=== PATIENT | female | born 1940 | race Caucasian/White ===

== ENCOUNTER 2024-06-01 03:30 | Emergency (ER) | payer OTHER, SELFPAY ==
[2024-06-01] MEDS ORDERED: ONDANSETRON 4 MG/2 ML VIAL ONE ×2 (03:51→08:43)
[2024-06-01] MEDS ORDERED: NA CHLORIDE 0.9% 1,000 ML ONE (03:52)
[2024-06-01] MEDS ORDERED: MORPHINE 4 MG/ML SYR ONE ×2 (03:52→08:43)
[2024-06-01 05:03] LABS: Absolute Eosinophils 0.1 K/uL (0-0.5); Absolute Lymphocytes (CBC) 1.2 K/uL (0.7-4.9); Absolute Monocytes 0.6 K/uL (0.1-1.3); Absolute Neutrophil 8.4 K/uL (1.8-8.0); Basophils % 0.4 % (0-1.3); Eosinophils % 0.6 % (0-4.4); Hematocrit 34.9 % (36.0-45.0); Hemoglobin 11.7 g/dL (12.0-15.0); MCH 27.8 pg (27.0-35.0); MCHC 33.6 g/dL (32.0-36.0); MCV 82.9 fL (80-100); MPV 10.1 fL (7.6-11.3); Monocytes % 5.4 % (3.3-12.3); Neutrophils % 81.6 % (41.7-73.7); Platelets 226 thou/uL (152-406); RBC Red Blood Cell Count 4.21 M/uL (3.86-4.86); Red Cell Distribution Width 15.4 % (12.1-15.2)
[2024-06-01 05:28] LABS: AST/SGOT 11 U/L (15-37); Albumin 3.3 g/dL (3.4-5.0); Albumin/Globulin Ratio 0.9 (1.1-1.8); Alkaline Phosphatase 64 U/L (45-117); Anion Gap 10.6 mEq/L (5.0-15.0); BUN Blood Urea Nitrogen 19 mg/dL (7-18); Bicarbonate 25 mEq/L (21-32); Bilirubin Total 1.3 mg/dL (0.2-1.0); Globulin 3.7 g/dL (2.3-3.5); Glomerular Filtration Rate 59 ml/min (=/>90); Glucose Level 142 mg/dL (74-106); Lipase 34 U/L (13-75); Potassium 3.6 mEq/L (3.5-5.1); Sodium Level 136 mEq/L (136-145); Troponin High Sensitivity 43.6 pg/mL (<58.9)
[2024-06-01 05:30] LABS: ALT/SGPT < 14 U/L (13-56)
[2024-06-01 06:15] LABS: Renal Epithelial <5 /HPF (None Seen); Specific Gravity 1.022 (1.005-1.030); Sqamous Epithelial <5 /HPF (None Seen); Urine Bacteria None Seen /HPF (<20); Urine Bilirubin NEGATIVE (Negative); Urine Blood Negative (Negative); Urine Clarity Clear (Clear); Urine Color Yellow (Yellow); Urine Culture Reflex Order NOT NEEDED; Urine Glucose NEGATIVE (Negative); Urine Ketones TRACE (Negative); Urine Microscopic Reflex YN ORDER UMIC; Urine Mucus Slight /HPF (None Seen); Urine Nitrite NEGATIVE (Negative); Urine Protein TRACE (Negative); Urine RBC <5 /HPF (None Seen); Urine Urobilinogen Normal (Normal); Urine WBC <5 /HPF (<5)
--- NOTE | 2024-06-01 08:02 | RAD REPORT ---
EXAM DESCRIPTION: CT - Abdomen Pelvis W Contrast - 06/01/2024 6:16 am CLINICAL HISTORY: Abdominal pain COMPARISON: none. TECHNIQUE: Computed axial tomography of the abdomen pelvis was obtained. 100 cc Isovue-300 was admin istered intravenously. Oral contrast was not requested which limits evaluation of bowel and appendix All CT scans are performed using dose optimization technique as appropriate and may include automated exposure control or mA/KV adjustment according to patient size. FINDINGS: Small left pleural effusion Cholecystectomy. Prominence of the biliary tree. The spleen, pancreas, adrenals and kidneys unremarkable Hysterectomy. No adnexal mass. Diverticula stem from the colon without evidence of diverticulitis. Postsurgical changes involve the stomach. Moderate dilatation of jejunum. This extends to a ventral hernia to the left of midline at the level of the iliac crest. Neck measures 6 millimeters. Ileum decompressed. No free air. No abscess Due to technical reasons the exam could not be read until now IMPRESSION: Small bowel obstruction secondary to a ventral hernia Prominence of the biliary tree can be a normal finding in this elderly patient status post cholecyste ctomy. However, this should be correlated clinically with appropriate lab values
--- NOTE | 2024-06-01 08:23 | EDPHYS ---
Physician Documentation [facility] Name: Rachel Sanders Age: 83 yrs Sex: Female : 1940 Arrival Date: 06/01/2024 Time: 03:30 Bed 7 Private MD: ED Physician Servando Pollock HPI: 06/01 04:04 This 83 yrs old Female presents to ER via Wheelchair with complaints of Abdominal Pain, sp3 Nausea/Vomiting. 04:04 83-year-old female history of diabetes, coronary artery disease status post CABG 3 sp3 months ago presents with left lower quadrant abdominal pain for the last 12 hours coupled with vomiting. She denies any diarrhea, blood or mucus in her emesis, back pain, right-sided pain, epigastric pain, chest pain, left arm pain, jaw pain, or any other anginal equivalents, or any other signs or symptoms on ROS at this time. Pain is described as sharp in nature. Historical: - Allergies: 03:45 Aspirin; hb - PMHx: 03:51 DM2; hb - PSHx: 03:51 CABG; Appendectomy; Hypertension; Cholecystectomy; hb - Immunization history:: Adult Immunizations up to date. - Infectious Disease History:: Denies. - Social history:: Smoking status: Patient denies any tobacco usage or history of. ROS: 04:06 Constitutional: Negative for fever, chills, and weight loss, Eyes: Negative for injury, sp3 pain, redness, and discharge, ENT: Negative for injury, pain, and discharge, Neck: Negative for injury, pain, and swelling, Cardiovascular: Negative for chest pain, palpitations, and edema, Respiratory: Negative for shortness of breath, cough, wheezing, and pleuritic chest pain, Back: Negative for injury and pain, MS/Extremity: Negative for injury and deformity, Skin: Negative for injury, rash, and discoloration, Neuro: Negative for headache, weakness, numbness, tingling, and seizure, Psych: Negative for depression, anxiety, suicide ideation, homicidal ideation, and hallucinations, Allergy/Immunology: Negative for hives, rash, and allergies, Endocrine: Negative for neck swelling, polydipsia, polyuria, polyphagia, and marked weight changes, Hematologic/Lymphatic: Negative for swollen nodes, abnormal bleeding, and unusual bruising, 04:06 All other systems are negative, Exam: 04:06 Constitutional: This is a well developed, well nourished patient who is awake, alert, sp3 and in no acute distress. Head/Face: Normocephalic, atraumatic. Eyes: Pupils equal round and reactive to light, extra-ocular motions intact. Lids and lashes normal. Conjunctiva and sclera are non-icteric and not injected. Cornea within normal limits. Periorbital areas with no swelling, redness, or edema. ENT: Nares patent. No nasal discharge, no septal abnormalities noted. External auditory canals are clear. Oropharynx with no redness, swelling, or masses, exudates, or evidence of obstruction, uvula midline. Mucous membranes moist. Neck: Trachea midline, no thyromegaly or masses palpated, and no cervical lymphadenopathy. Supple, full range of motion without nuchal rigidity, or vertebral point tenderness. No Meningismus. Chest/axilla: Normal chest wall appearance and motion. Nontender with no deformity. No lesions are appreciated. Cardiovascular: Regular rate and rhythm with a normal S1 and S2. No gallops, murmurs, or rubs. Normal PMI, no JVD. No pulse deficits. Respiratory: Lungs have equal breath sounds bilaterally, clear to auscultation and percussion. No rales, rhonchi or wheezes noted. No increased work of breathing, no retractions or nasal flaring. Back: No spinal tenderness. No costovertebral tenderness. Full range of motion. Skin: Warm, dry with normal turgor. Normal color with no rashes, no lesions, and no evidence of cellulitis. MS/ Extremity: Pulses equal, no cyanosis. Neurovascular intact. Full, normal range of motion. Neuro: Awake and alert, GCS 15, oriented to person, place, time, and situation. Cranial nerves II-XII grossly intact. Motor strength 5/5 in all extremities. Sensory grossly intact. Cerebellar exam normal. Normal gait. Psych: Awake, alert, with orientation to person, place and time. Behavior, mood, and affect are within normal limits. 04:06 Abdomen/GI: Left lower quadrant abdominal pain to palpation with mild localized rebound without other peritoneal signs., 04:42 ECG was reviewed by the Attending Physician. EKG demonstrates normal sinus rhythm at 75 sp3 bpm with QTc 482 ms, leftward axis, nonspecific diffuse ST's ST changes without evidence of acute ischemia. Vital Signs: 03:42 BP 172 / 76; Pulse 82; Resp 14; Temp 97.2(TE); Pulse Ox 100% on R/A; Weight 81.65 kg; hb Height 5 ft. 4 in. ; Pain 10/10; 04:36 BP 149 / 70; Pulse 87; Resp 19; Pulse Ox 100% on R/A; rg5 05:30 BP 160 / 84; Pulse 94; Resp 17 S; Pulse Ox 95% on R/A; ha1 06:45 BP 174 / 74; Pulse 88; Resp 18; Pulse Ox 94% on R/A; ha1 09:32 BP 113 / 96; Pulse 89; Resp 19; Pulse Ox 94% on R/A; iw 03:42 Body Mass Index 30.90 (81.65 kg, 162.56 cm) hb 03:42 Pain Scale: Adult hb [place] Coma Score: 04:36 Eye Response: spontaneous(4). Motor Response: obeys commands(6). Verbal Response: rg5 oriented(5). Total: 15. MDM: 03:35 Patient medically screened. sp3 04:07 Data reviewed: vital signs, nurses notes, lab test result(s), EKG, radiologic studies. sp3 ED course: 83-year-old female with left lower quadrant abdominal pain. Differential diagnosis includes diverticulitis, UTI/pyelonephritis spectrum, other colitis, pancreatic disease, gastritis, peptic ulcer disease, biliary pathology, aortic pathology, kidney stone, among others. I am not highly suspicious for sepsis or shock or other critical illness. Disposition pending workup and patient course. Will treat with IV pain control, nausea control and IV fluids. Diagnostics will include CT scan of the abdomen pelvis, UA, laboratory values and general supportive care with disposition pending workup and patient course.. 06/01 03:44 Order name: CBC with Diff; Complete Time: 05:37 sp3 06/01 03:44 Order name: CMP; Complete Time: 05:37 sp3 06/01 03:44 Order name: Lipase; Complete Time: 05:37 sp3 06/01 03:44 Order name: Urinalysis w/ reflexes; Complete Time: 06:30 sp3 06/01 03:44 Order name: Troponin High Sensitivity; Complete Time: 05:37 sp3 06/01 03:44 Order name: CT Abd/Pelvis - IV Contrast Only; Complete Time: 08:17 sp3 06/01 08:20 Order name: Abdomen 1 View (KUB) XRAY; Complete Time: 10:38 river 06/01 03:44 Order name: EKG; Complete Time: 03:45 3 06/01 03:44 Order name: IV Saline Lock; Complete Time: 04:21 3 06/01 03:44 Order name: Labs collected and sent; Complete Time: 04:21 3 06/01 03:44 Order name: Cath: If no UA in 15 minutes; Complete Time: 05:42 sp3 06/01 03:44 Order name: EKG - Nurse/Tech; Complete Time: 04:34 3 06/01 08:20 Order name: Nasogastric Tube; Complete Time: 09:19 river Administered Medications: 04:00 Drug: NS 0.9% IV 1000 ml IV at 1 bolus Per protocol; 1000 mL bolus Route: IV; Rate: 1 ha1 bolus; Site: left femoral; 04:00 Drug: Ondansetron IVP 4 mg IVP once; over 2 minutes Route: IVP; Site: left forearm; ha1 04:30 Follow up: Response: No adverse reaction; Marked relief of symptoms ha1 04:02 Drug: morphine IVP or IV 4 mg IVP once over 4 mins Route: IVP; Infused Over: 4 mins; ha1 Site: left forearm; 04:30 Follow up: Response: No adverse reaction; Marked relief of symptoms; Pain is decreased; ha1 RASS: Alert and Calm (0) 09:20 Drug: morphine IVP or IV 4 mg IVP once over 4 mins Route: IVP; Infused Over: 4 mins; iw Site: left wrist; 09:20 Drug: Ondansetron IVP 4 mg IVP once; over 2 minutes Route: IVP; Site: left wrist; iw 11:02 Drug: Piperacillin-Tazobactam IVPB 3.375 grams IVPB once over 60 mins; (mix in NS 100 iw mL) Route: IVPB; Infused Over: 60 mins; Site: right wrist; Disposition Summary: 06/01/24 09:34 Transfer Ordered Notes: Transfer Location: [facility] river Reason: Higher level of care river Condition: Stable(06/01/24 09:34) river Problem: new(06/01/24 09:34) river Symptoms: have improved(06/01/24 09:34) river Accepting Physician: to [facility](06/01/24 13:31) ll1 Diagnosis - Other intestinal obstruction - secondary to ventral hernia(06/01/24 09:34) river - Vomiting(06/01/24 09:34) river Forms: - Medication Reconciliation Form river - SBAR form river Signatures: Dispatcher [employer] EDMS Servando Pollock MD MD cha Williams, Irene RN RN iw Candiad Berry RN RN Heriberto Golden RN RN ll1 Donte Green MD MD sp3 Aydee Jimenez RN RN ha1 Corrections: (The following items were deleted from the chart) 09:33 08:22 Inpatient Admission river river 09:33 08:22 AlexanderDonell jennings river river 09:33 08:22 Telemetry/MedSurg (Inpatient) river river 09:33 08:22 Fair river river 09:33 08:22 new river river 09:33 08:22 have improved river river 09:33 08:22 Standard river river 09:33 08:22 river river 09:33 08:22 Other intestinal obstruction - ventral hernia river river 09:33 08:22 Vomiting river river 13:31 09:34 to [facility] river ll1
--- NOTE | 2024-06-01 08:23 | ER ---
Nurse's Notes [facility] Name: Rachel Sanders Age: 83 yrs Sex: Female : 1940 Arrival Date: 06/01/2024 Time: 03:30 Bed 7 Private MD: Diagnosis: Other intestinal obstruction-secondary to ventral hernia;Vomiting Presentation: 06/01 03:42 Chief complaint: Upper abdominal pain and N/V since yesterday evening. Coronavirus hb screen: At this time, the client does not indicate any symptoms associated with coronavirus-19. Ebola Screen: No symptoms or risks identified at this time. Initial Sepsis Screen: Does the patient meet any 2 criteria? No. Patient's initial sepsis screen is negative. Does the patient have a suspected source of infection? No. Patient's initial sepsis screen is negative. Risk Assessment: Do you want to hurt yourself or someone else? Patient reports no desire to harm self or others. Onset of symptoms was May 31, 2024. 03:42 Method Of Arrival: Wheelchair hb 03:42 Acuity: EMILY 3 hb Triage Assessment: 03:43 General: Appears in no apparent distress. uncomfortable, Behavior is cooperative, hb agitated, restless. Pain: Pain currently is 10 out of 10 on a pain scale. Neuro: Level of Consciousness is awake, alert, obeys commands, Oriented to person, place, time, situation. Cardiovascular: Patient's skin is warm and dry. Respiratory: Respiratory effort is even, unlabored, Respiratory pattern is regular, symmetrical. GI: Reports upper abdominal pain, nausea, vomiting. Historical: - Allergies: 03:45 Aspirin; hb - PMHx: 03:51 DM2; hb - PSHx: 03:51 CABG; Appendectomy; Hypertension; Cholecystectomy; hb - Immunization history:: Adult Immunizations up to date. - Infectious Disease History:: Denies. - Social history:: Smoking status: Patient denies any tobacco usage or history of. Screenin:36 [facility] ED Fall Risk Assessment (Adult) History of falling in the last 3 months, rg5 including since admission No falls in past 3 months (0 pts) Confusion or Disorientation No (0 pts) Intoxicated or Sedated No (0 pts) Impaired Gait No (0 pts) Mobility Assist Device Used No (0 pt) Altered Elimination No (0 pt) Score/Fall Risk Level 0 - 2 = Low Risk Oriented to surroundings, Maintained a safe environment, Educated pt \T\ family on fall prevention, incl call for assistance when getting out of bed, Hourly rounding (assess needs \T\ fall precautionary measures) done. Nutritional screening: No deficits noted. Tuberculosis screening: No symptoms or risk factors identified. Assessment: 03:35 General: Appears uncomfortable, Behavior is calm, cooperative. Pain: Complains of pain ha1 in left upper quadrant and left lower quadrant Pain does not radiate. Pain currently is 9 out of 10 on a pain scale. Quality of pain is described as aching, sharp, throbbing. Neuro: Level of Consciousness is awake, alert, obeys commands, Oriented to person, place, time, situation. Cardiovascular: Capillary refill < 3 seconds Patient's skin is warm and dry. Respiratory: Airway is patent Respiratory effort is even, unlabored, Respiratory pattern is regular, symmetrical. GI: Abdomen is round non-distended, obese, Bowel sounds present X 4 quads. Abdomen is tender to palpation in left upper quadrant and left lower quadrant Reports lower abdominal pain, nausea, vomiting. : No signs and/or symptoms were reported regarding the genitourinary system. Derm: Skin is pink, warm \T\ dry. 04:30 Reassessment: Patient and/or family updated on plan of care and expected duration. Pain ha1 level reassessed. Patient is alert, oriented x 3, equal unlabored respirations, skin warm/dry/pink. Patient states feeling better. Patient states symptoms have improved. 05:30 Reassessment: Patient and/or family updated on plan of care and expected duration. Pain ha1 level reassessed. Patient is alert, oriented x 3, equal unlabored respirations, skin warm/dry/pink. 06:30 Reassessment: Patient and/or family updated on plan of care and expected duration. Pain ha1 level reassessed. Patient is alert, oriented x 3, equal unlabored respirations, skin warm/dry/pink. 08:00 General: Appears uncomfortable, Behavior is cooperative. Pain: Complains of pain in iw abdomen and left lower quadrant and left upper quadrant. Neuro: Level of Consciousness is awake, alert, obeys commands, Oriented to person, place, time, situation, Moves all extremities. Cardiovascular: Patient's skin is warm and dry. GI: Abdomen is round distended, Bowel sounds present X 4 quads. hyperactive in right upper quadrant and left upper quadrant Abdomen is tender to palpation in right upper quadrant and left upper quadrant Reports lower abdominal pain, nausea, vomiting. Derm: Skin is pink, warm \T\ dry. normal. Musculoskeletal: Range of motion: intact in all extremities. 10:15 Reassessment: Patient appears in no apparent distress at this time. Patient and/or iw family updated on plan of care and expected duration. Pain level reassessed. Patient states feeling better. Patient states symptoms have improved. Vital Signs: 03:42 BP 172 / 76; Pulse 82; Resp 14; Temp 97.2(TE); Pulse Ox 100% on R/A; Weight 81.65 kg; hb Height 5 ft. 4 in. ; Pain 10/10; 04:36 BP 149 / 70; Pulse 87; Resp 19; Pulse Ox 100% on R/A; rg5 05:30 BP 160 / 84; Pulse 94; Resp 17 S; Pulse Ox 95% on R/A; ha1 06:45 BP 174 / 74; Pulse 88; Resp 18; Pulse Ox 94% on R/A; ha1 09:32 BP 113 / 96; Pulse 89; Resp 19; Pulse Ox 94% on R/A; iw 03:42 Body Mass Index 30.90 (81.65 kg, 162.56 cm) hb 03:42 Pain Scale: Adult hb [place] Coma Score: 04:36 Eye Response: spontaneous(4). Motor Response: obeys commands(6). Verbal Response: rg5 oriented(5). Total: 15. ED Course: 03:33 Patient arrived in ED. gm2 03:35 Donte Green MD is Attending Physician. sp3 03:45 Triage completed. hb 03:45 Arm band placed on. hb 04:26 Missed attempt(s): 22 gauge in left antecubital area. oe 04:27 EKG done, by ED staff. oe 04:36 Placed in gown. Bed in low position. Call light in reach. Side rails up X 1. rg5 04:36 No provider procedures requiring assistance completed. rg5 05:30 Straight cath inserted, using sterile technique, 16 Fr. Specimen obtained. Returned ha1 deepak urine. Patient tolerated well. 06:18 CT Abd/Pelvis - IV Contrast Only In Process Unspecified. EDMS 07:08 Attending Physician role handed off by Donte Green MD river 07:08 Servando Pollock MD is Attending Physician. river 07:10 Steph Bajwa, RN is Primary Nurse. iw 08:21 Donell Leslie is Hospitalizing Provider. river 09:25 Abdomen 1 View (KUB) XRAY In Process Unspecified. EDMS 09:32 NGT: inserted 14 Fr. via right nare. verified placement of air over stomach, verified iw return of gastric contents, to intermittent suction. Returned gastric contents. Patient tolerated well. 10:51 Inserted saline lock: 24 gauge in right hand, using aseptic technique. 6 11:16 administrative approval given by Trang Conley Rn/ patient has been accepted to [facility] bed 1809/ Dr. Niko Roy has accepted the patient in transfer/ report to be called to [phone]. Administered Medications: 04:00 Drug: NS 0.9% IV 1000 ml IV at 1 bolus Per protocol; 1000 mL bolus Route: IV; Rate: 1 ha1 bolus; Site: left femoral; 04:00 Drug: Ondansetron IVP 4 mg IVP once; over 2 minutes Route: IVP; Site: left forearm; ha1 04:30 Follow up: Response: No adverse reaction; Marked relief of symptoms ha1 04:02 Drug: morphine IVP or IV 4 mg IVP once over 4 mins Route: IVP; Infused Over: 4 mins; ha1 Site: left forearm; 04:30 Follow up: Response: No adverse reaction; Marked relief of symptoms; Pain is decreased; ha1 RASS: Alert and Calm (0) 09:20 Drug: morphine IVP or IV 4 mg IVP once over 4 mins Route: IVP; Infused Over: 4 mins; iw Site: left wrist; 09:20 Drug: Ondansetron IVP 4 mg IVP once; over 2 minutes Route: IVP; Site: left wrist; iw 11:02 Drug: Piperacillin-Tazobactam IVPB 3.375 grams IVPB once over 60 mins; (mix in NS 100 iw mL) Route: IVPB; Infused Over: 60 mins; Site: right wrist; Medication: 04:36 VIS not applicable for this client. rg5 Outcome: 08:22 Decision to Hospitalize by Provider. river 09:34 ER care complete, transfer ordered by . river 13:31 Patient left the ED. ll1 Signatures: Dispatcher [employer] EDServando Adrian MD MD cha Williams, Irene, RN RN iw Candida Berry RN RN Brandon Good Elizabeth eb Lewis, Lynsay, RN RN ll1 Donte Green MD MD 3 Aydee Jimenez RN RN 1 Beatrice Aly [facility] Sanaz Bucio 2 Mart Hair RN RN rg5 Corrections: (The following items were deleted from the chart) 05:42 04:32 Reassessment: jacques Jostin
[2024-06-01] MEDS ORDERED: NA CHLORIDE 0.9% 100 ML ONE (08:43)
[2024-06-01] MEDS ORDERED: PIPERACIL/TAZO 3.375 GM VIAL IV ONE (08:44)
--- NOTE | 2024-06-01 09:35 | RAD REPORT ---
EXAM DESCRIPTION: RAD - Abdomen 1 View (KUB) - 06/01/2024 9:24 am CLINICAL HISTORY: Device placement nasogastric tube placement FINDINGS: The tip of a nasogastric tube lies near the junction of the gastric fundus and body
--- NOTE | 2024-06-01 12:09 | EKG ---
Test Date: 2024-06-01 Test Time: 04:28:15 Oil Boiler: YUMI MEASUREMENT RESULTS: Intervals: Rate: 75 SC: 148 QRSD: 112 QT: 432 QTc: 482 [place]: P: 37 SC: 148 QRS: -33 T: 103 INTERPRETIVE STATEMENTS: Sinus rhythm with premature atrial complexes Left axis deviation Incomplete right bundle branch block Left ventricular hypertrophy with repolarization abnormality Cannot rule out Septal infarct, age undetermined Abnormal ECG No previous ECG available for comparison Electronically Signed On 06-01-24 12:08:53 CDT by Shaji Cisneros
[2024-06-01 14:43] VITALS: TEMP 97.2; O2SAT 94
[2024-06-01 15:00] VITALS: BP 113/96
== END 2024-06-01 13:31 | disposition short-term general hospital (02) ==
LOC: ER 03:30
DX: K43.6 Other and unspecified ventral hernia with obstruction, without gangrene (principal); R11.10 Vomiting, unspecified
CPT/HCPCS: 93005; 85025; 81001; 36415; 84484; 83690; 80053; 74177; 74018; 51702; 99285; Q9967; J2543; J2405 ×2; J7030

== ENCOUNTER 2024-12-28 17:41 | Inpatient (IN) | payer OTHER ==
--- NOTE | 2024-12-28 19:30 | RAD REPORT ---
EXAM: CT Head Brain Wo Cont HISTORY: DIZZINESS COMPARISON: None TECHNIQUE: Multiple contiguous axial images were obtained for a CT of the brain without contrast. Sag ittal and coronal reformats were performed. One or more of the following dose reduction techniques were used: Automated exposure control, adjus tment of the mA and kV according to patient size, and iterative reconstruction. Unless otherwise specified, incidental findings do not require dedicated imaging follow-up. FINDINGS: No evidence of hydrocephalus, intracranial hemorrhage, or extra-axial fluid collection. Mild brain atrophy with mild periventricular and deep white matter chronic microvascular ischemic ch anges present. The calvarium is intact. The visualized paranasal sinuses and mastoid air cells are essentially clear . IMPRESSION: No evidence of acute intracranial abnormality.
[2024-12-28] MEDS ORDERED: ONDANSETRON 4 MG/2 ML VIAL ONE (19:36)
[2024-12-28] MEDS ORDERED: MECLIZINE HCL 12.5 MG TAB ONE (19:36)
--- NOTE | 2024-12-28 20:30 | RAD REPORT ---
EXAMINATION: ONE VIEW CHEST XR CLINICAL INDICATION: Female, 84 years old.,COUGH TECHNIQUE: Frontal chest projection is submitted. Examination is limited by patient positioning and t echnique. COMPARISON: 06/01/2024 FINDINGS: The lungs are well inflated and clear. No pneumothorax or sizable effusion. The heart is normal in s ize. Mediastinal contours are unchanged except for interval appearance of prosthetic aortic valve. IMPRESSION: No acute intrathoracic abnormalities.
--- NOTE | 2024-12-28 20:34 | RAD REPORT ---
EXAM: US Carotid Artery Bilateral CLINICAL INDICATION: DIZZINESS TECHNIQUE: Real-time grayscale, color flow, and spectral Doppler sonographic images were obtained of the extracranial carotid system using a linear transducer. Arterial peak systolic velocities are recorded as follows. COMPARISON: No prior exam. FINDINGS: RIGHT: Common carotid artery: 113 cm/s Internal carotid artery: 278 cm/s Right ICA/CCA ratio: 2.46 Plaque: Mild residual cord plaque External carotid artery: 159 cm/s Vertebral artery: Antegrade LEFT: Common carotid artery: 66 cm/s Internal carotid artery: 118 cm/s Left ICA/CCA ratio: 1.70 Plaque:Mild smooth echogenic plaque at the bulb External carotid artery: 172 cm/s Vertebral artery: Antegrade IMPRESSION: Greater than or equal to 70% stenosis of the right ICA, but less than near occlusion. No hemodynamically significant stenosis (greater than 50%) of the left ICA. Bilateral antegrade vertebral artery flow. The degrees of stenosis, if any, are quantified according to the consensus statement of the Society o f Radiologists in Ultrasound (SRUS). Please refer to Naldo E, Arash C, Samara G et al. Carotid Artery Stenosis: Argueta-Scale and Doppler US Diagnosis--Society of Radiologists in Ultrasound Consensus Conference. Radiology. 2003;229(2):340-6. doi:10.1148/[id number]
[2024-12-28 21:30] LABS: Absolute Basophils 0.1 K/uL (0-0.5); Absolute Eosinophils 0.3 K/uL (0-0.5); Absolute Lymphocytes (CBC) 1.9 K/uL (0.7-4.9); Absolute Monocytes 0.7 K/uL (0.1-1.3); Absolute Neutrophil 3.7 K/uL (1.8-8.0); Eosinophils % 5.1 % (0-4.4); Hemoglobin 12.7 g/dL (12.0-15.0); MCHC 33.4 g/dL (32.0-36.0); MPV 8.9 fL (7.6-11.3); Monocytes % 10.2 % (3.3-12.3); Neutrophils % 54.7 % (41.7-73.7); Nucleated Red Blood Cells % 0.1 % (0-0); PT Prothrombin Time 11.1 SECONDS (9.4-12.5); Platelets 198 thou/uL (152-406); Protime INR 1.06; RBC Red Blood Cell Count 4.22 M/uL (3.86-4.86); Red Cell Distribution Width 14.5 % (12.1-15.2)
--- NOTE | 2024-12-28 21:32 | ER ---
Nurse's Notes [facility] Name: Rachel Sanders Age: 84 yrs Sex: Female : 1940 Arrival Date: 12/28/2024 Time: 17:41 Bed 24 Private MD: Diagnosis: Weakness;Dizziness and giddiness;Hypotension, unspecified Presentation: 12/28 19:03 Chief complaint: Patient states: Woke up this morning with dizziness. Pt states that cm10 she has had dizzy episodes before, but not like this. Coronavirus screen: Client denies travel out of the [place] in the last 14 days. Ebola Screen: Patient denies travel to an Ebola-affected area in the 21 days before illness onset. Initial Sepsis Screen: Does the patient meet any 2 criteria? No. Patient's initial sepsis screen is negative. Does the patient have a suspected source of infection? No. Patient's initial sepsis screen is negative. Risk Assessment: Do you want to hurt yourself or someone else? Patient reports no desire to harm self or others. Onset of symptoms was December 28, 2024. 19:03 Method Of Arrival: Wheelchair cm10 19:03 Acuity: EMILY 3 cm10 Triage Assessment: 19:07 General: Appears in no apparent distress. comfortable, Behavior is calm, cooperative. cm10 Neuro: No deficits noted. Level of Consciousness is awake, alert, obeys commands, Oriented to person, place, time, situation, Appropriate for age Reports dizziness. Respiratory: No deficits noted. Airway is patent Respiratory effort is even, unlabored, Respiratory pattern is regular, symmetrical. 12/29 01:46 Pain: Denies pain. kb3 Historical: - Allergies: 12/28 19:04 Aspirin; cm10 - Home Meds: 19:04 aspirin 81 mg oral tablet,chewable 1 tab daily [Active]; atorvastatin 40 mg oral tablet cm10 1 tab daily [Active]; gabapentin 100 mg oral capsule 1 cap 3 times per day [Active]; losartan 50 mg oral tablet 1 tab [Active]; metaxalone 800 mg oral tablet 1 tab two times daily as needed [Active]; metformin 500 mg Oral tablet 1 tab daily [Active]; - PMHx: 19:04 DM2; Hypertensive disorder; Hypercholesterolemia; cm10 - PSHx: 19:04 Appendectomy; Cholecystectomy; CABG; Hypertension; cm10 - Immunization history:: Adult Immunizations up to date. - Infectious Disease History:: Denies. - Social history:: Smoking status: Patient denies any tobacco usage or history of. Screenin/06 01:45 [facility] ED Fall Risk Assessment (Adult) History of falling in the last 3 months, kb3 including since admission No falls in past 3 months (0 pts) Confusion or Disorientation No (0 pts) Intoxicated or Sedated Yes (3 pts) Impaired Gait No (0 pts) Mobility Assist Device Used No (0 pt) Altered Elimination No (0 pt) Score/Fall Risk Level 0 - 2 = Low Risk Oriented to surroundings, Maintained a safe environment, Assessed \T\ reinforced patient's understanding of fall precautions, Hourly rounding (assess needs \T\ fall precautionary measures) done. Abuse screen: Denies threats or abuse. Denies injuries from another. Nutritional screening: No deficits noted. Tuberculosis screening: No symptoms or risk factors identified. Assessment: 12/28 18:30 General: In radiology per family.. cm10 18:42 General: Not in lobby. remains in radiology per family.. cm10 22:53 Reassessment: Patient appears in no apparent distress at this time. Patient and/or cm10 family updated on plan of care and expected duration. Pain level reassessed. Patient is alert, oriented x 3, equal unlabored respirations, skin warm/dry/pink. Vital Signs: 19:03 BP 93 / 70; Pulse 74; Resp 15; Temp 97.4(O); Pulse Ox 100% on R/A; Weight 81.65 kg; cm10 Height 5 ft. 0 in. ; Pain 0/10; 22:51 BP 145 / 47; Pulse 70; Resp 15; Pulse Ox 100% ; cm10 12/29 08:13 Temp 97.8(O); cc6 12/28 19:03 Body Mass Index 35.15 (81.65 kg, 152.4 cm) cm10 12/28 19:03 Pain Scale: Adult cm10 ED Course: 12/28 17:46 Patient arrived in ED. al6 17:50 Servando Pollock MD is Attending Physician. river 18:32 CT Head Brain wo Cont In Process Unspecified. EDMS 18:43 XRAY Chest (1 view) In Process Unspecified. EDMS 19:00 US Carotid Artery Bilateral In Process Unspecified. EDMS 19:04 Triage completed. cm10 19:07 Arm band placed on right wrist. Patient placed in waiting room. cm10 21:17 Troponin HS Sent. jb4 21:17 PT-INR Sent. jb4 21:17 NT PRO-BNP Sent. jb4 21:17 Magnesium Sent. jb4 21:17 LFT's Sent. jb4 21:17 CBC with Diff Sent. jb4 21:17 Basic Metabolic Panel Sent. jb4 21:17 Inserted saline lock: 24 gauge in right hand, using aseptic technique. jb4 21:31 Haseeb Mukherjee MD is Hospitalizing Provider. river 21:52 Type And Screen Sent. vk 12/29 01:45 Bed in low position. Call light in reach. Side rails up X2. Provided Education on: kb3 admission. 01:45 No provider procedures requiring assistance completed. Patient admitted, IV remains in kb3 place. Administered Medications: 12/28 22:34 Drug: Meclizine PO 50 mg PO once Route: PO; kb3 23:58 Follow up: Response: No adverse reaction cp4 22:35 Drug: Ondansetron IVP 4 mg IVP once; over 2 minutes Route: IVP; Site: Other; kb3 23:57 Follow up: Response: No adverse reaction cp4 22:35 Drug: Famotidine IVP 20 mg IVP once; dilute with 10 mL 0.9% NaCl; give over 2 minutes kb3 Route: IVP; Site: Other; 23:58 Follow up: Response: No adverse reaction cp4 22:35 Drug: NS 0.9% IV 1000 ml IV at 1 bolus Per protocol; to be given as a bolus over 60 kb3 minutes Route: IV; Rate: 1 bolus; Site: Other; 12/29 01:47 Follow up: IV Status: Completed infusion kb3 12/28 22:52 Drug: Acetaminophen PO 650 mg PO once Route: PO; cm10 23:58 Follow up: Response: No adverse reaction cp4 22:52 Drug: Diazepam PO 2 mg PO once Route: PO; cm10 23:58 Follow up: Response: No adverse reaction cp4 Medication: 12/29 01:45 VIS not applicable for this client. kb3 Outcome: 12/28 21:32 Decision to Hospitalize by Provider. river 12/29 01:36 Admitted to ER Hold. Please see [facility] for further documentation. kb3 Condition: stable Instructed on the need for admit, 09:25 Patient left the ED. Signatures: Dispatcher [employer] EDServando Adrian MD MD cha Williams, Irene, RN RN iw Jarad Calderon RN RN jb4 Kylee Trejo RN RN kb3 Krystle Arthur RN RN cm10 Bee Aleman cp4 Yamileth Machado Cassandra cc6 Sammi Birch6
--- NOTE | 2024-12-28 21:32 | EDPHYS ---
Physician Documentation [facility] Name: Rachel Sanders Age: 84 yrs Sex: Female : 1940 Arrival Date: 12/28/2024 Time: 17:41 Bed 24 Private MD: ED Physician Servando Pollock HPI: 12/28 19:39 This 84 yrs old Female presents to ER via Wheelchair with complaints of river Dizziness. 19:39 The patient presents with dizziness, generalized weakness, lightheadedness. Onset: The river symptoms/episode began/occurred 3 day(s) ago. Context: occurred at home, occurred while the patient was standing. Modifying factors: The symptoms are alleviated by lying down, SITTING. Associated signs and symptoms: Pertinent positives: DIZZY. Historical: - Allergies: 19:04 Aspirin; cm10 - Home Meds: 19:04 aspirin 81 mg oral tablet,chewable 1 tab daily [Active]; atorvastatin 40 mg oral tablet cm10 1 tab daily [Active]; gabapentin 100 mg oral capsule 1 cap 3 times per day [Active]; losartan 50 mg oral tablet 1 tab [Active]; metaxalone 800 mg oral tablet 1 tab two times daily as needed [Active]; metformin 500 mg Oral tablet 1 tab daily [Active]; - PMHx: 19:04 DM2; Hypertensive disorder; Hypercholesterolemia; cm10 - PSHx: 19:04 Appendectomy; Cholecystectomy; CABG; Hypertension; cm10 - Immunization history:: Adult Immunizations up to date. - Infectious Disease History:: Denies. - Social history:: Smoking status: Patient denies any tobacco usage or history of. ROS: 19:41 Constitutional: Negative for fever, chills, and weight loss, Eyes: Negative for injury, river pain, redness, and discharge, ENT: Negative for injury, pain, and discharge, Neck: Negative for injury, pain, and swelling, Cardiovascular: Negative for chest pain, palpitations, and edema, Respiratory: Negative for shortness of breath, cough, wheezing, and pleuritic chest pain, Abdomen/GI: Negative for abdominal pain, nausea, vomiting, diarrhea, and constipation, Back: Negative for injury and pain, : Negative for injury, bleeding, discharge, and swelling, MS/Extremity: Negative for injury and deformity, Psych: Negative for depression, anxiety, suicide ideation, homicidal ideation, and hallucinations, Allergy/Immunology: Negative for hives, rash, and allergies, Endocrine: Negative for neck swelling, polydipsia, polyuria, polyphagia, and marked weight changes, Hematologic/Lymphatic: Negative for swollen nodes, abnormal bleeding, and unusual bruising, 19:41 Skin: Positive for pallor, 19:41 Neuro: Positive for dizziness, Exam: 19:41 Constitutional: This is a well developed, well nourished patient who is awake, alert, river and in no acute distress. Head/Face: Normocephalic, atraumatic. Eyes: Pupils equal round and reactive to light, extra-ocular motions intact. Lids and lashes normal. Conjunctiva and sclera are non-icteric and not injected. Cornea within normal limits. Periorbital areas with no swelling, redness, or edema. ENT: Nares patent. No nasal discharge, no septal abnormalities noted. Tympanic membranes are normal and external auditory canals are clear. Oropharynx with no redness, swelling, or masses, exudates, or evidence of obstruction, uvula midline. Mucous membranes moist. Neck: Trachea midline, no thyromegaly or masses palpated, and no cervical lymphadenopathy. Supple, full range of motion without nuchal rigidity, or vertebral point tenderness. No Meningismus. Chest/axilla: Normal chest wall appearance and motion. Nontender with no deformity. No lesions are appreciated. Cardiovascular: Regular rate and rhythm with a normal S1 and S2. No gallops, murmurs, or rubs. Normal PMI, no JVD. No pulse deficits. Respiratory: Lungs have equal breath sounds bilaterally, clear to auscultation and percussion. No rales, rhonchi or wheezes noted. No increased work of breathing, no retractions or nasal flaring. Abdomen/GI: Soft, non-tender, with normal bowel sounds. No distension or tympany. No guarding or rebound. No evidence of tenderness throughout. Back: No spinal tenderness. No costovertebral tenderness. Full range of motion. Skin: Warm, dry with normal turgor. Normal color with no rashes, no lesions, and no evidence of cellulitis. MS/ Extremity: Pulses equal, no cyanosis. Neurovascular intact. Full, normal range of motion., bilateral aka Neuro: Awake and alert, GCS 15, oriented to person, place, time, and situation. Cranial nerves II-XII grossly intact. Motor strength 5/5 in all extremities. Sensory grossly intact. Cerebellar exam normal. Normal gait. Psych: Awake, alert, with orientation to person, place and time. Behavior, mood, and affect are within normal limits. 19:41 Musculoskeletal/extremity: Circulation is intact in all extremities. Sensation intact. Compartment Syndrome exam of affected extremity: is normal. Weight bearing: able to fully bear weight, DVT Exam: No signs of deep vein thrombosis. no pain, no swelling, no tenderness, negative Homans' sign noted on exam, no appreciated bluish discoloration, no erythema, no increased warmth, Vital Signs: 19:03 BP 93 / 70; Pulse 74; Resp 15; Temp 97.4(O); Pulse Ox 100% on R/A; Weight 81.65 kg; cm10 Height 5 ft. 0 in. ; Pain 0/10; 22:51 BP 145 / 47; Pulse 70; Resp 15; Pulse Ox 100% ; cm10 12/29 08:13 Temp 97.8(O); cc6 12/28 19:03 Body Mass Index 35.15 (81.65 kg, 152.4 cm) cm10 12/28 19:03 Pain Scale: Adult cm10 MDM: 12/28 17:50 Medical Screening Exam initiated river 19:42 Differential diagnosis: cardiac arrhythmia, CVA, generalized weakness, GI bleed, river idiopathic dizziness, near-syncope, sepsis, syncope, TIA. Data reviewed: vital signs, nurses notes, lab test result(s), EKG, radiologic studies, CT scan, doppler, plain films. Consideration of Admission/Observation Patient was admitted/placed on observation. Escalation of care including admission/observation considered. I considered the following discharge prescriptions or medication management in the emergency department Medications were administered in the Emergency Department. See MAR. Independent interpretation of the following test(s) in the Emergency Department EKG: See my EKG interpretation above. Test considered but Not performed: Ultrasound NO 2 D ECHO. Historians other than the Patient: Family Member: FAMILY WELL INFORMED AND HELPFUL. Care significantly affected by the following chronic conditions: Diabetes, Hypertension, Obesity, VALVE SURGERY. Counseling: I had a detailed discussion with the patient and/or guardian regarding the historical points, exam findings, and any diagnostic results supporting the discharge/admit diagnosis, lab results, radiology results, the need for further work-up and treatment in the hospital. 12/28 17:53 Order name: Basic Metabolic Panel; Complete Time: 21:41 river 12/28 17:53 Order name: CBC with Diff; Complete Time: 21:32 river 12/28 17:53 Order name: LFT's; Complete Time: 21:41 river 12/28 17:53 Order name: Magnesium; Complete Time: 21:41 river 12/28 17:53 Order name: NT PRO-BNP; Complete Time: 21:41 river 12/28 17:53 Order name: PT-INR; Complete Time: 21:32 river 12/28 17:53 Order name: Troponin HS; Complete Time: 21:41 river 12/28 17:53 Order name: Lipase; Complete Time: 21:41 river 12/28 17:53 Order name: Urinalysis w/ reflexes [facility] 12/28 19:41 Order name: Type And Screen [facility] 12/28 23:11 Order name: Urinalysis w/ reflexes EDOH 12/28 23:11 Order name: CBC with Automated Diff EDMS 12/28 23:11 Order name: CBC with Automated Diff EDMS 12/28 23:11 Order name: Comprehensive Metabolic Panel EDMS 12/28 23:11 Order name: Comprehensive Metabolic Panel EDMS 12/28 23:11 Order name: Magnesium EDMS 12/28 23:11 Order name: Magnesium EDMS 12/29 05:20 Order name: CBC Smear Scan EDMS 12/29 07:08 Order name: ABO/RH no charge EDOH 12/29 08:09 Order name: Glucose, Ancillary Testing EDOH 12/28 17:53 Order name: XRAY Chest (1 view); Complete Time: 20:[address] [facility] 12/28 17:53 Order name: CT Head Brain wo Cont; Complete Time: 20:24 river 12/28 17:53 Order name: US Carotid Artery Bilateral; Complete Time: 20:46 river 12/28 23:11 Order name: Echo without Doppler (2D) EDMS 12/28 17:53 Order name: EKG; Complete Time: 17:53 river 12/28 23:11 Order name: CONS Physician Consult EDOH 12/28 17:53 Order name: Cardiac monitoring; Complete Time: 23:[address] [facility] 12/28 17:53 Order name: EKG - Nurse/Tech; Complete Time: 01:47 river 12/28 17:53 Order name: IV Saline Lock; Complete Time: 21:52 river 12/28 17:53 Order name: Labs collected and sent; Complete Time: 21:52 river 12/28 17:53 Order name: O2 Per Protocol; Complete Time: 23:57 river 12/28 17:53 Order name: O2 Sat Monitoring; Complete Time: 23:57 river 12/28 22:02 Order name: Misc. Order: FALL PERCAUTIONS; Complete Time: 22:35 river Administered Medications: 22:34 Drug: Meclizine PO 50 mg PO once Route: PO; kb3 23:58 Follow up: Response: No adverse reaction cp4 22:35 Drug: Ondansetron IVP 4 mg IVP once; over 2 minutes Route: IVP; Site: Other; kb3 23:57 Follow up: Response: No adverse reaction cp4 22:35 Drug: Famotidine IVP 20 mg IVP once; dilute with 10 mL 0.9% NaCl; give over 2 minutes kb3 Route: IVP; Site: Other; 23:58 Follow up: Response: No adverse reaction cp4 22:35 Drug: NS 0.9% IV 1000 ml IV at 1 bolus Per protocol; to be given as a bolus over 60 kb3 minutes Route: IV; Rate: 1 bolus; Site: Other; 12/29 01:47 Follow up: IV Status: Completed infusion 3 12/28 22:52 Drug: Acetaminophen PO 650 mg PO once Route: PO; cm10 23:58 Follow up: Response: No adverse reaction cp4 22:52 Drug: Diazepam PO 2 mg PO once Route: PO; cm10 23:58 Follow up: Response: No adverse reaction cp4 Disposition Summary: 12/28/24 21:32 Hospitalization Ordered Notes: Hospitalization Status: Observation river Provider: Haseeb Mukherjee cha Condition: Fair river Problem: new river Symptoms: have improved river Bed/Room Type: Standard river Location: Telemetry/MedSurg (Inpatient)(12/29/24 08:54) bc6 Room Assignment: 418(12/29/24 08:54) bc6 Diagnosis - Weakness river - Dizziness and giddiness river - Hypotension, unspecified river Forms: - Medication Reconciliation Form river - SBAR form river - Leadership Thank You Letter river Signatures: Dispatcher [employer] Servando Palacio MD MD cha Bradberry, Kelly RN RN kb3 Angie Phillips 1 Beatrice Aly 6 Krystle Arthur RN RN cm10 Bee Aleman cp4 Corrections: (The following items were deleted from the chart) 23:24 21:32 Telemetry/MedSurg (observation) [facility] rv1 23:24 21:32 [facility] 12/29 08:54 02 23:24 [facility] 12/29 08:54 12/28 23:24 [facility]
[2024-12-28 21:39] LABS: Albumin 3.3 g/dL (3.4-5.0); Albumin/Globulin Ratio 0.8 (1.1-1.8); Anion Gap 9.1 mEq/L (5.0-15.0); Bilirubin Direct 0.2 mg/dL (0-0.2); Bilirubin Indirect, Calculated 0.7 mg/dL (0.2-0.8); Bilirubin Total 0.9 mg/dL (0.2-1.0); Globulin 4.2 g/dL (2.3-3.5); Magnesium 2.1 mg/dL (1.6-2.4); Potassium 4.1 mEq/L (3.5-5.1); Protein, Total 7.5 g/dL (6.4-8.2); Troponin High Sensitivity 21.4 pg/mL (<58.9)
[2024-12-28] MEDS ORDERED: NA CHLORIDE 0.9% 1,000 ML ONE (21:57)
[2024-12-28] MEDS ORDERED: FAMOTIDINE 20 MG/2 ML VIAL IV ONE (21:57)
[2024-12-28] MEDS ORDERED: ACETAMINOPHEN 325 MG TABLET ONE (22:42)
[2024-12-28] MEDS ORDERED: DIAZEPAM 2 MG TABLET ONE (22:43)
[2024-12-28] MEDS ORDERED: ONDANSETRON 4 MG (ODT) TAB PO PRN (23:06)
[2024-12-29 00:45] LABS: Specific Gravity 1.007 (1.005-1.030); Sqamous Epithelial <5 /HPF (None Seen); Urine Bacteria 20-50 /HPF (<20); Urine Bilirubin NEGATIVE (Negative); Urine Blood 1+ (Negative); Urine Clarity Extremely Turbid (Clear); Urine Color Light-Orange (Yellow); Urine Culture Reflex Order REFLEXED; Urine Glucose NEGATIVE (Negative); Urine Ketones NEGATIVE (Negative); Urine Microscopic Reflex YN ORDER UMIC; Urine Mucus Slight /HPF (None Seen); Urine Nitrite NEGATIVE (Negative); Urine Protein TRACE (Negative); Urine Urobilinogen Normal (Normal); Urine WBC >50 /HPF (<5); Urine WBC Clump Moderate /HPF (None Seen); Urine pH 5.5 (5.0-7.0)
[2024-12-29 01:42] VITALS: BMI 35.2
[2024-12-29 04:59] LABS: Absolute Basophils 0.1 K/uL (0-0.5); Absolute Eosinophils 0.3 K/uL (0-0.5); Absolute Lymphocytes (CBC) 1.9 K/uL (0.7-4.9); Absolute Monocytes 0.5 K/uL (0.1-1.3); Basophils % 1.1 % (0-1.3); Eosinophils % 5.8 % (0-4.4); Hematocrit 33.1 % (36.0-45.0); Hemoglobin 11.4 g/dL (12.0-15.0); Lymphocytes % 32.7 % (15.3-44.8); MCH 30.2 pg (27.0-35.0); MCHC 34.4 g/dL (32.0-36.0); MCV 87.9 fL (80-100); MPV 9.5 fL (7.6-11.3); Monocytes % 8.3 % (3.3-12.3); Neutrophils % 52.1 % (41.7-73.7); Nucleated Red Blood Cells % 0.2 % (0-0); Platelets 167 thou/uL (152-406); RBC Red Blood Cell Count 3.76 M/uL (3.86-4.86); Red Cell Distribution Width 14.7 % (12.1-15.2)
[2024-12-29 05:20] LABS: Blood Morphology Comment NOT SEEN (NOT SEEN); Platelet Estimate ADEQ; White Blood Cell Scan OK (OK)
[2024-12-29 05:25] LABS: AST/SGOT 13 U/L (15-37); Albumin 2.8 g/dL (3.4-5.0); Albumin/Globulin Ratio 0.8 (1.1-1.8); Alkaline Phosphatase 76 U/L (45-117); BUN Blood Urea Nitrogen 20 mg/dL (7-18); Bicarbonate 24 mEq/L (21-32); Bilirubin Total 0.7 mg/dL (0.2-1.0); Globulin 3.5 g/dL (2.3-3.5); Glomerular Filtration Rate 83 ml/min (=/>90); Glucose Level 90 mg/dL (74-106); Magnesium 2.2 mg/dL (1.6-2.4); Protein, Total 6.3 g/dL (6.4-8.2); Sodium Level 139 mEq/L (136-145)
[2024-12-29 05:40] LABS: ALT/SGPT < 14 U/L (13-56)
--- NOTE | 2024-12-29 07:26 | P.HP ---
Certification for Inpatient Patient admitted to: Observation With expected LOS: <2 Midnights Practitioner: I am a practitioner with admitting privileges, knowledge of patient current condition, hospital course, and medical plan of care. Services: Services provided to patient in accordance with Admission requirements found in Title 42 Section 412.3 of the Code of Federal Regulations Patient History Date of Service: 12/29/24 Reason for admission: dizziness History of Present Illness: 84-year-old female with history of diabetes, hypertension, hyperlipidemia previous CABG presents with complaints of dizziness and generalized weakness. She reports that she has had issues with dizziness previously. States that it had worsened today. She did have episode 3 days ago. She also report having some eye pressure. When evaluated the patient reports her dizziness has improved. She denies taking any new medications. And states that her last eye exam was within the last 6 months. Allergies No Known Allergies Allergy (Unverified 12/29/24 01:43) Home Medications: Aspirin [Aspirin EC 81 MG] 162 mg PO DAILY 12/29/24 Metformin ER [Glucophage ER] 500 mg PO DAILY 12/29/24 - Past Medical/Surgical History Has patient received pneumonia vaccine in the past: Yes - Social History Smoking Status: Never smoker Review of Systems 10-point ROS is otherwise unremarkable Physical Examination - Vital Signs Temperature: 97.4 F Blood Pressure: 167/45 Pulse: 78 Respirations: 18 Pulse Ox (%): 100 - Physical Exam General: Alert, Oriented x3 HEENT: Atraumatic, Normocephalic Respiratory: Clear to auscultation bilaterally, Normal air movement Cardiovascular: Normal S1 S2 Gastrointestinal: Normal bowel sounds, Soft and benign, Non-distended Musculoskeletal: No clubbing Integumentary: No rashes Neurological: Normal speech - Studies Laboratory Data (last 24 hrs) 12/28/24 12/28/24 12/28/24 21:00 21:00 21:00 WBC 6.70 Hgb 12.7 Hct 38.0 Plt Count 198 PT 11.1 INR 1.06 Sodium 135 L Potassium 4.1 BUN 22 H Creatinine 0.93 Glucose 118 H Magnesium 2.1 Total Bilirubin 0.9 AST 18 ALT 16 Alkaline Phosphatase 90 Lipase 32 Assessment and Plan - Problems (Diagnosis) (1) Dizziness Current Visit: Yes Status: Acute (2) Hypertension Current Visit: Yes Status: Acute (3) Diabetes Current Visit: Yes Status: Acute - Plan 84-year-old female with history of hypertension, diabetes, hyperlipidemia presents with dizziness Dizziness -- Differentials could be medication induced, volume depletion -- Admit for observation --Keep on telemetry -- Check orthostatics -- Check echocardiogram -- Consider cardiology and neurology consult. She may benefit from tilt table Hypertension -- Hold diuretics and home antihypertensive medications Diabetes -- FSBS sliding scale insulin - Advance Directives Does patient have a Living Will: No Does patient have a Durable POA for Healthcare: No
[2024-12-29] MEDS ORDERED: D10W 125 ML IV PRN (07:29)
[2024-12-29] MEDS ORDERED: GLUCAGON 1 MG/VIAL IM PRN (07:29)
[2024-12-29] MEDS: INSULIN REGULAR (HUMAN) 100 UNIT/ML SQ SCH (07:30)
--- NOTE | 2024-12-29 11:25 | EKG ---
Test Date: 2024-12-29 Test Time: 00:52:26 Head Esthetician: ELAINE MEASUREMENT RESULTS: Intervals: Rate: 63 TX: 204 QRSD: 106 QT: 432 QTc: 442 [place]: P: 75 TX: 204 QRS: -7 T: 60 INTERPRETIVE STATEMENTS: Normal sinus rhythm Incomplete right bundle branch block Anteroseptal infarct, age undetermined Abnormal ECG Compared to ECG 06/01/2024 04:28:15 Atrial premature complex(es) no longer present Left-axis deviation no longer present Left ventricular hypertrophy no longer present Early repolarization no longer present Myocardial infarct finding still present Electronically Signed On 12-29-24 11:24:15 MASTER CONTROL ENGINEER by Shaji Cisneros
[2024-12-29] MEDS: MECLIZINE HCL 12.5 MG TAB PO SCH (14:46)
[2024-12-29] MEDS ORDERED: FENTANYL CITR 100 MCG/2 ML IV PRN (14:52)
[2024-12-29] MEDS: dexAMETHasone 4 MG/ML VIAL IV ONE (17:58)
[2024-12-29] MEDS ORDERED: CEFTRIAXONE 1,000 MG in NA CHLORIDE 0.9% 50 ML IVPB ONE (18:31)
[2024-12-29] MEDS: HYDROCODONE/APAP 10/325 TAB PO PRN (21:51)
[2024-12-29] MEDS: CEFTRIAXONE 1,000 MG in NA CHLORIDE 0.9% 50 ML IVPB ONE (21:52)
[2024-12-30 00:24] VITALS: O2SAT 99
[2024-12-30 09:12] VITALS: BP 147/78; TEMP 97.6
[2024-12-30] MEDS: ASPIRIN EC 81 MG TAB PO SCH (09:21)
--- NOTE | 2024-12-30 13:17 | P.DS ---
Admission Date: 12/29/24 Discharge Date: 12/30/24 Disposition: ROUTINE DISCHARGE Discharge Condition: GOOD Reason for Admission: dizziness Brief History of Present Illness: 84-year-old female with history of diabetes, hypertension, hyperlipidemia previous CABG presents with complaints of dizziness and generalized weakness. She reports that she has had issues with dizziness previously. States that it had worsened today. She did have episode 3 days ago. She also report having some eye pressure. When evaluated the patient reports her dizziness has improved. She denies taking any new medications. And states that her last eye exam was within the last 6 months. - Physical Exam General: Alert, Oriented x3 HEENT: Atraumatic, Normocephalic Respiratory: Clear to auscultation bilaterally, Normal air movement Cardiovascular: Normal S1 S2 Gastrointestinal: Normal bowel sounds, Soft and benign, Non-distended Musculoskeletal: No clubbing Integumentary: No rashes Neurological: Normal speech Hospital Course: 84-year-old female with history of diabetes, hypertension, hyperlipidemia previous CABG presents with complaints of dizziness and generalized weakness. She reports that she has had issues with dizziness previously. States that it had worsened today. She did have episode 3 days ago. She also report having some eye pressure. When evaluated the patient reports her dizziness has improved. She denies taking any new medications. And states that her last eye exam was within the last 6 months. He is tolerating diet, stable discharge home, follow-up with PCP after discharge Discharge medications Lipitor 10 mg 1 p.o. daily 30 days Dexamethasone 2 mg 1 p.o. twice daily for 3-day Hydrocodone 10 mg 1 p.o. every 6 hours Meclizine 25 mg every 8 hours as needed for dizziness Assessment CAD, discharged home on Lipitor daily, Dizziness-discharged home on meclizine 1 p.o. every 8 hours Hypertension-resume home meds Diabetes resume home med Carotid Doppler greater than or equal to 70% stenosis of the right ICA, but less than near occlusion.\ No hemodynamically significant stenosis (greater than 50%) of the left ICA. Chest x-ray No acute intrathoracic abnormalities. Continue home medicines as previously prescribed GOAL: Clear understanding of disease process INSTRUCTIONS: Physician Discharge Instructions: -Follow-up with PCP in 1 to 2 weeks -Please call Dr. Gonzáles at [phone] if any questions regarding hospital stay -Please call nursing station at [phone] if any nursing or medication questions -Return to the emergency room if symptoms worsen Diet: ADA, low sodium Activity: Fall precautions Vital Signs/Physical Exam: Temp Pulse Resp BP Pulse Ox 97.6 F 73 16 147/78 H 98 12/30/24 08:00 12/30/24 08:00 12/30/24 08:00 12/30/24 08:00 12/30/24 04:00 Laboratory Data at Discharge: WBC 5.80 thou/uL (4.3-10.9) 12/29/24 04:28 Hgb 11.4 g/dL (12.0-15.0) L D 12/29/24 04:28 Hct 33.1 % (36.0-45.0) L 12/29/24 04:28 Plt Count 167 thou/uL (152-406) 12/29/24 04:28 PT 11.1 SECONDS (9.4-12.5) 12/28/24 21:00 INR 1.06 12/28/24 21:00 Sodium 139 mEq/L (136-145) 12/29/24 04:28 Potassium 4.0 mEq/L (3.5-5.1) 12/29/24 04:28 BUN 20 mg/dL (7-18) H 12/29/24 04:28 Creatinine 0.72 mg/dL (0.55-1.02) 12/29/24 04:28 Glucose 90 mg/dL (74-106) 12/29/24 04:28 Magnesium 2.2 mg/dL (1.6-2.4) 12/29/24 04:28 Total Bilirubin 0.7 mg/dL (0.2-1.0) 12/29/24 04:28 AST 13 U/L (15-37) L 12/29/24 04:28 ALT < 14 U/L (13-56) 12/29/24 04:28 Alkaline Phosphatase 76 U/L (45-117) 12/29/24 04:28 Lipase 32 U/L (13-75) 12/28/24 21:00 Home Medications: Aspirin [Aspirin EC 81 MG] 162 mg PO DAILY 12/29/24 Atorvastatin Calcium [Lipitor] 10 mg PO BEDTIME #30 tab 12/29/24 Hydrocodone 10/APAP 325 [[place] 10/325*] 1 tab PO Q6H PRN #30 tab 12/29/24 Meclizine HCl 25 mg PO Q8H PRN #15 tab 12/29/24 Metformin ER [Glucophage ER*] 500 mg PO DAILY 12/29/24 dexAMETHasone [Dexamethasone] 2 mg PO BID #6 tab 12/29/24 New Medications: dexAMETHasone [Dexamethasone] 2 mg PO BID #6 tab Atorvastatin Calcium [Lipitor] 10 mg PO BEDTIME #30 tab Meclizine HCl 25 mg PO Q8H PRN #15 tab PRN Reason: Dizziness Hydrocodone 10/APAP 325 [[place] 10/325*] 1 tab PO Q6H PRN #30 tab PRN Reason: Pain Scale 5-7 (Moderate) Physician Discharge Instructions: -DC IV and DC home -Follow-up with PCP in 1 to 2 weeks -Follow-up with Cardiology in 1 to 2 weeks -Please call Dr. Gonzáles at [phone] if any questions regarding hospital stay -Please call nursing station at [phone] if any nursing or medication questions -Return to the emergency room if symptoms worsen Diet: AHA Activity: Fall precautions Followup: JOSE ORTEGA JR [Primary Care Provider] - 1-2 Weeks Time spent managing pt's care (in minutes): 45
--- NOTE | 2024-12-30 14:19 | ECHO ---
HEIGHT: 5 ft 0 in WEIGHT: 180 lb 0 oz DATE OF STUDY: 12/30/[address]: Haseeb Mukherjee MD 2-DIMENSIONAL: YES M.MODE: YES DOPPLER: YES COLOR FLOW: YES TDS: PORTABLE: DEFINITY: BUBBLE STUDY: DIAGNOSIS: [*] CARDIAC HISTORY: CATHERIZATION: SURGERY: PROSTHETIC VALVE: PACEMAKER: MEASUREMENTS (cm) DIASTOLIC (NORMALS) SYSTOLIC (NORMALS) IVSd [*] (0.6-1.2) LA Diam [*] (1.9-4.0) LVEF [*]% LVIDd [*] (3.5-5.7) LVIDs [*] (2.0-3.5) %FS [*]% LVPWd [*] (0.6-1.2) Ao Diam [*] (2.0-3.7) 2 DIMENSIONAL ASSESSMENT: RIGHT ATRIUM: NORMAL LEFT ATRIUM: ENLARGED RIGHT VENTRICLE: NOT WELL SEEN LEFT VENTRICLE: LEFT VENTRICULAR HYPERTROPHY SEEN TRICUSPID VALVE: NORMAL MITRAL VALVE: MODERATE MITRAL ANNULAR CALCIFICATION PULMONIC VALVE: NORMAL AORTIC VALVE: BIOPROSTHESIS IS PRESENT PERICARDIAL EFFUSION: NONE AORTIC ROOT: NORMAL LEFT VENTRICULAR WALL MOTION: NORMAL DOPPLER/COLOR FLOW: SEE BELOW COMMENTS: 1. NORMAL LEFT VENTRICULAR EJECTION FRACTION 60-65% WITH NORMAL WALL MOTION 2. GRADE I DIASTOLIC DYSFUNCTION 3. MODERATE TO SEVERE CONCENTRIC LEFT VENTRICULAR HYPERTROPHY 4. LEFT ATRIAL ENLARGEMENT 5. MITRAL ANNULAR CALCIFICATION WITH MILD MITRAL REGURGITATION 6. AORTIC VALVE BIO-PROSTHESIS IS PRESENT AND FUNCTIONING NORMAL. DOPPLER INDEX IS 0.45 TECHNOLOGIST: EMILY HOLT
== END 2024-12-30 10:45 | disposition home or self-care (01) | DRG 149 ==
LOC: ER 17:41 → ERHOLD 23:06 → 4TH 12-29 09:39 → OBSVTOIN 12-29 19:10
PROVIDERS: ADMIT Internal Medicine; ATTEND Hospitalist
DX: R42 Dizziness and giddiness (principal); E11.9 Type 2 diabetes mellitus without complications; I10 Essential (primary) hypertension; E66.9 Obesity, unspecified; E78.00 Pure hypercholesterolemia, unspecified; I95.9 Hypotension, unspecified; I25.10 Atherosclerotic heart disease of native coronary artery without angina pectoris; Z95.1 Presence of aortocoronary bypass graft; Z79.82 Long term (current) use of aspirin; Z79.84 Long term (current) use of oral hypoglycemic drugs; Z90.49 Acquired absence of other specified parts of digestive tract; Z68.35 Body mass index [BMI] 35.0-35.9, adult; Z79.899 Other long term (current) drug therapy
CPT/HCPCS: 36415; 70450; 71045; 80048; 80053; 80076; 81001; 82947; 83690; 83735; 83880; 84484; 85025; 85610; 86850; 86900; 86901; 87077; 87086; 87088; 87186; 93005; 93306; 93880; 96361; 96374; 96375; 99285; G0378; J0696; J1100; J2405; J7030; J8597

== ENCOUNTER 2025-01-05 09:12 | Emergency (ER) | payer OTHER ==
[2025-01-05] MEDS ORDERED: CYCLOBENZAPRINE 10 MG TAB ONE (09:43)
--- NOTE | 2025-01-05 10:28 | RAD REPORT ---
EXAMINATION: CTA NECK CLINICAL INDICATION: neck pain, dizziness TECHNIQUE: Axial CT images were obtained from the aortic arch to the skull base after intravenous con trast utilizing angiographic protocol with 3D post-processing (maximum intensity projection images, volume rendered images and/or shaded surface rendered images). One or more of the following dose redu ction techniques were used: Automated exposure control, adjustment of the mA and/or kV according to patient size, and/or iterative reconstruction. Unless otherwise specified, incidental findings do not require dedicated imaging follow-up. COMPARISON: Carotid ultrasound study 12/28/2024 FINDINGS: AORTA: The imaged aortic arch is normal. CCA: No significant stenosis bilaterally. ICA/ECA: Significant hard plaque right carotid bulb and proximal right ICA results in stenosis approa grey 90% at the level of the bulb. There is severe hard plaque involving the left carotid bulb and proximal left internal carotid artery resulting in stenosis estimated at between 95-99%. VERTEBRAL: The cervical vertebral arteries are patent. The vertebral arteries are codominant. SOFT TISSUE: No significant neck soft tissue abnormalities. The visualized lung apices are clear. 3D images confirm these findings. IMPRESSION: Severe bilateral carotid bulb stenosis as detailed above. NASCET criteria used. Mild 0-49% stenosis Moderate 50-69% stenosis Severe 70-99% stenosis
--- NOTE | 2025-01-05 10:52 | EDPHYS ---
Physician Documentation [facility] Name: Rachel Sanders Age: 84 yrs Sex: Female : 1940 Arrival Date: 01/05/2025 Time: 09:12 Bed 5 Private MD: ED Physician Michael Mcelroy HPI: 01/05 10:12 This 84 yrs old Female presents to ER via Ambulatory with complaints of Stiff Neck. rt 10:12 Patient had a recent admission to the hospital for a dizziness with a negative workup rt save for about 70% ICA stenosis. Has subsequent admission at [facility], now has a Holter monitor in place and is being evaluated for her dizziness. She states over the past 3 days, she has had a left-sided neck pain described as a stiffness. Denies trauma. Denies other acute complaints at this time, symptoms are moderate in severity, no other aggravating or alleviating factors.. Historical: - Allergies: 09:18 Aspirin; sensitive to aspirin; ll1 - PMHx: 09:16 DM2; Hypertensive disorder; Hypercholesterolemia; ll1 09:27 Myocardial infarction; kc6 - PSHx: 09:16 Appendectomy; CABG; Cholecystectomy; Hypertension; ll1 09:27 Appendectomy; kc6 - Immunization history:: Adult Immunizations up to date. - Infectious Disease History:: Denies. - Social history:: Smoking status: Patient denies any tobacco usage or history of. ROS: 10:12 Constitutional: Negative for fever, chills, and weight loss, Cardiovascular: Negative rt for chest pain, palpitations, and edema, Respiratory: Negative for shortness of breath, cough, wheezing, and pleuritic chest pain, Abdomen/GI: Negative for abdominal pain, nausea, vomiting, diarrhea, and constipation, 10:12 Neck: Positive for pain with movement, pain at rest, stiffness, 10:12 Neuro: Positive for dizziness, Exam: 10:12 Constitutional: This is a well developed, well nourished patient who is awake, alert, rt and in no acute distress. Head/Face: Normocephalic, atraumatic. Chest/axilla: Normal chest wall appearance and motion. Nontender with no deformity. No lesions are appreciated. Cardiovascular: Regular rate and rhythm with a normal S1 and S2. No gallops, murmurs, or rubs. Normal PMI, no JVD. No pulse deficits. Respiratory: Lungs have equal breath sounds bilaterally, clear to auscultation and percussion. No rales, rhonchi or wheezes noted. No increased work of breathing, no retractions or nasal flaring. Abdomen/GI: Soft, non-tender, with normal bowel sounds. No distension or tympany. No guarding or rebound. No evidence of tenderness throughout. 10:12 Neck: Tenderness over left superior trapezius muscle, no midline tenderness, Vital Signs: 09:25 BP 146 / 60; Pulse 77; Resp 16 S; Pulse Ox 100% on R/A; Height 5 ft. 0 in. (R); Pain kc6 8/10; 11:13 BP 132 / 64; Pulse 76; Resp 18; Temp 97.8; Pulse Ox 98% on R/A; ph 09:25 Pain Scale: Adult kc6 MDM: 09:29 Medical Screening Exam initiated rt 11:09 Differential diagnosis: Musculoskeletal pain, vertebral artery dissection. Data rt reviewed: vital signs, nurses notes, radiologic studies. I considered the following discharge prescriptions or medication management in the emergency department Medications were administered in the Emergency Department. See MAR. Test considered but Not performed: Other Details Patient had recent labs, do not believe that repeats are indicated. Care significantly affected by the following chronic conditions: Diabetes, Hypertension. Counseling: I had a detailed discussion with the patient and/or guardian regarding the historical points, exam findings, and any diagnostic results supporting the discharge/admit diagnosis, radiology results, the need for outpatient follow up. ED course: Patient with bilateral carotid stenosis seen on CT scan. This is a known pre-existing issue, she has been evaluated for this by a vascular surgeon, they are prepping for carotid endarterectomy. I informed patient of the findings on the CT scan. She has no lateralizing symptoms consistent with an acute CVA, suspect that her pain is musculoskeletal in nature. At this time, I do not believe there is an emergent indication for transfer due to the carotid stenosis but it to give the patient strict return precautions. I instructed her to follow-up as soon as possible with her vascular surgeon to have her carotid endarterectomy.. 01/05 09:37 Order name: CT Neck Angio; Complete Time: 10:40 rt Administered Medications: 09:48 Drug: Cyclobenzaprine PO 5 mg PO once Route: PO; ph 10:28 Follow up: Response: No adverse reaction kc6 Disposition Summary: 01/05/25 10:52 Discharge Ordered Notes: Location: Home rt Problem: new rt Symptoms: are unchanged rt Condition: Stable rt Diagnosis - Neck pain rt - Carotid stenosis rt Followup: rt - With: Private Physician - When: 2 - 3 days - Reason: Discharge Instructions: - Discharge Summary Sheet rt - Carotid Artery Disease rt Forms: - Medication Reconciliation Form rt - Antibiotic Education rt - Prescription Opioid Use rt - Patient Portal Instructions rt - Leadership Thank You Letter rt Prescriptions: - Cyclobenzaprine 5 mg Oral Tablet - take 1 tablet ORAL route 3 times per day As needed; 15 tablet; Refills: 0, rt Product Selection Permitted Signatures: Dispatcher [employer] Edyta Valencia RN RN ph Heriberto Golden RN RN ll1 Maryse Coelho RN RN kc6 Michael Mcelroy MD MD rt Corrections: (The following items were deleted from the chart) 09:19 09:16 Allergies: No Known Allergies; ll1 ll1
--- NOTE | 2025-01-05 10:52 | ER ---
Nurse's Notes [facility] Name: Rachel Sanders Age: 84 yrs Sex: Female : 1940 Arrival Date: 01/05/2025 Time: 09:12 Bed 5 Private MD: Diagnosis: Neck pain;Carotid stenosis Presentation: 01/05 09:25 Chief complaint: Patient states: left sided neck pain that began this AM upon awakening kc at 0700. denies injury. Coronavirus screen: At this time, the client does not indicate any symptoms associated with coronavirus-19. Ebola Screen: No symptoms or risks identified at this time. Initial Sepsis Screen: Does the patient meet any 2 criteria? No. Patient's initial sepsis screen is negative. Does the patient have a suspected source of infection? No. Patient's initial sepsis screen is negative. Risk Assessment: Do you want to hurt yourself or someone else? Patient reports no desire to harm self or others. Onset of symptoms was January 05, 2025. 09:25 Method Of Arrival: Ambulatory [facility] 09:25 Acuity: EMILY 3 [facility] Historical: - Allergies: 09:18 Aspirin; sensitive to aspirin; 1 - PMHx: 09:16 DM2; Hypertensive disorder; Hypercholesterolemia; 1 09:27 Myocardial infarction; kc6 - PSHx: 09:16 Appendectomy; CABG; Cholecystectomy; Hypertension; 1 09:27 Appendectomy; kc - Immunization history:: Adult Immunizations up to date. - Infectious Disease History:: Denies. - Social history:: Smoking status: Patient denies any tobacco usage or history of. Screenin:28 [facility] ED Fall Risk Assessment (Adult) History of falling in the last 3 months, [facility] including since admission No falls in past 3 months (0 pts) Confusion or Disorientation No (0 pts) Intoxicated or Sedated No (0 pts) Impaired Gait No (0 pts) Mobility Assist Device Used No (0 pt) Altered Elimination No (0 pt) Score/Fall Risk Level 0 - 2 = Low Risk Oriented to surroundings, Maintained a safe environment, Educated pt \T\ family on fall prevention, incl call for assistance when getting out of bed. Abuse screen: Denies threats or abuse. Denies injuries from another. Nutritional screening: No deficits noted. Tuberculosis screening: No symptoms or risk factors identified. Assessment: 09:28 General: Appears in no apparent distress. uncomfortable, well groomed, well developed, kc6 Behavior is calm, cooperative, appropriate for age. Pain: Complains of pain in base of the skull Pain does not radiate. Pain currently is 8 out of 10 on a pain scale. Pain began 2 hours ago. Neuro: Level of Consciousness is awake, alert, obeys commands, Oriented to person, place, time, situation, Appropriate for age Reports dizziness. Cardiovascular: Denies chest pain, shortness of breath, Capillary refill < 3 seconds. Respiratory: Airway is patent Trachea midline Respiratory effort is even, unlabored, Respiratory pattern is regular, symmetrical. GI: No signs and/or symptoms were reported involving the gastrointestinal system. : No signs and/or symptoms were reported regarding the genitourinary system. EENT: No signs and/or symptoms were reported regarding the EENT system. Derm: No signs and/or symptoms reported regarding the dermatologic system. Skin is intact, is healthy with good turgor, Skin is pink, warm \T\ dry. Musculoskeletal: No signs and/or symptoms reported regarding the musculoskeletal system. Circulation, motion, and sensation intact. Range of motion: intact in all extremities. 10:28 Reassessment: Patient appears in no apparent distress at this time. No changes from kc6 previously documented assessment. Patient and/or family updated on plan of care and expected duration. Pain level reassessed. Patient is alert, oriented x 3, equal unlabored respirations, skin warm/dry/pink. Vital Signs: 09:25 BP 146 / 60; Pulse 77; Resp 16 S; Pulse Ox 100% on R/A; Height 5 ft. 0 in. (R); Pain kc6 8/10; 11:13 BP 132 / 64; Pulse 76; Resp 18; Temp 97.8; Pulse Ox 98% on R/A; ph 09:25 Pain Scale: Adult kc6 ED Course: 09:13 Patient arrived in ED. mr 09:14 Michael Mcelroy MD is Attending Physician. rt 09:19 Arm band placed on Patient placed in an exam room, on a stretcher. ll1 09:25 Maryse Coelho RN is Primary Nurse. kc6 09:27 Triage completed. kc6 09:27 Patient has correct armband on for positive identification. Bed in low position. Call kc6 light in reach. Side rails up X2. Adult w/ patient. classroom monitor on. Pulse ox on. NIBP on. Door closed. Noise minimized. Lights dimmed. Pillow given. 09:28 Patient maintains SpO2 saturation greater than 95% on room air. kc6 09:54 Inserted saline lock: 22 gauge in right forearm, using aseptic technique. Flushed with kc6 10 mL NS. 10:04 CT Neck Angio In Process Unspecified. EDMS 11:13 No provider procedures requiring assistance completed. IV discontinued, intact, ph bleeding controlled, No redness/swelling at site. Pressure dressing applied. Administered Medications: 09:48 Drug: Cyclobenzaprine PO 5 mg PO once Route: PO; ph 10:28 Follow up: Response: No adverse reaction kc6 Medication: 11:13 VIS not applicable for this client. ph Outcome: 10:52 Discharge ordered by MD. rt 11:13 Discharged to home via wheelchair, with family, ph 11:13 Condition: good 11:13 Discharge instructions given to patient, family, Instructed on discharge instructions, follow up and referral plans. medication usage, Demonstrated understanding of instructions, follow-up care, medications, Prescriptions given X 1, 11:13 Patient left the ED. ph Signatures: Dispatcher [employer] EDMS Gema Dixon, Reg Reg mr Edyta Fonseca, RN RN ph Heriberto Golden RN RN [id number] Maryse Coelho RN RN kc6 Michael Mcelroy MD MD rt Corrections: (The following items were deleted from the chart) 09:19 09:16 Allergies: No Known Allergies; ll1 ll1
[2025-01-05 11:28] VITALS: BP 132/64; TEMP 97.8; O2SAT 98
== END 2025-01-05 11:13 | disposition home or self-care (01) ==
LOC: ER 09:12
DX: M54.2 Cervicalgia (principal); I65.29 Occlusion and stenosis of unspecified carotid artery; I10 Essential (primary) hypertension; E78.00 Pure hypercholesterolemia, unspecified; E11.9 Type 2 diabetes mellitus without complications; I25.2 Old myocardial infarction; Z95.1 Presence of aortocoronary bypass graft
CPT/HCPCS: 70498; Q9967